=== PATIENT | female | born 1945 | race Caucasian/White ===

== ENCOUNTER 2016-08-26 07:39 | Day surgery (SDC) | payer MEDICARE ==
[2016-08-23 16:55] LABS: BASOPHILS 0.2 %; BASOPHILS ABSOLUTE 0.02 10/3/uL (0.0-0.16); EOSINOPHILS 2.6 %; EOSINOPHILS ABSOLUTE 0.24 10/3/uL (0.0-0.53); HEMATOCRIT 36.4 % (36.0-48.0); HEMOGLOBIN 12.1 g/dL (12.0-16.0); IMMATURE GRANULOCYTES ABSOLUTE 0.09 10/3/uL (0.0-0.11); LYMPHOCYTES 36.5 %; LYMPHOCYTES ABSOLUTE 3.34 10/3/uL (0.67-4.30); MEAN CORPUS HGB CONC 33.2 g/dL (32.0-36.0); MEAN CORPUSCULAR HEMOGLOB 30.1 pg (26.0-34.0); MEAN CORPUSCULAR VOLUME 90.5 fL (80-100); MEAN PLATELET VOLUME 8.7 fL (9.2-13.0); MONOCYTES ABSOLUTE 0.73 10/3/uL (0.21-1.20); NEUTROPHILS 51.7 %; NEUTROPHILS ABSOLUTE 4.72 10/3/uL (2.02-8.40); RED CELL COUNT 4.02 10/6/uL (4.0-5.6)
[2016-08-23 17:00] LABS: MANUAL DIFF NO %; PLATELET COUNT 438 10/3/uL (150-400); WHITE BLOOD CELLS 9.1 10/3/uL (4.5-10.5)
[2016-08-23 17:11] LABS: BUN (BLOOD UREA NITROGEN) 17 MG/DL (6-23); CHLORIDE, SERUM 108 MMOL/L (96-112); CO2 (CARBON DIOXIDE) 23 MMOL/L (24-34); CREATININE 0.75 MG/DL (0.55-1.02); GFR AFRICAN AMERICAN 94 ML/MIN (>=60); GFR NON AFRICAN AMERICAN 81 ML/MIN (>=60); SODIUM, SERUM 141 MMOL/L (135-148)
[2016-08-23 17:12] LABS: CALCIUM, SERUM 8.5 MG/DL (8.5-10.4); GLUCOSE, SERUM 86 MG/DL (60-99); POTASSIUM, SERUM 4.4 MMOL/L (3.5-5.3)
[2016-08-23 17:18] LABS: ASCORBIC ACID (UR NOT ORDER) NEG (NEG); BILIRUBIN, URINE NEGATIVE (NEG); KETONE, URINE NEGATIVE (NEG); LEUKOCYTE ESTERASE(NOT OR TRACE (NEG); WBC (NOT ORDERED) (RFLEX) 4 (0-5)
--- NOTE | ~2016-08-26 | OP ---
Record Of Operation [facility] [address] [place]. [address] NAME: ALISON LEE : 47 STATUS : [facility]#: [id number] AGE: 71 ADM/REG DATE : 08/26/16 MR#: [id number] REPORT SERV DATE: 08/26/16 DICTATED BY: LOCO BUSTILLOS DATE: 08/26/16 REPORT STATUS : Draft TRANSCRIBED BY: GODFREY DATE: 08/26/16 DATE OF PROCEDURE: 08/26/2016 PREOPERATIVE DIAGNOSIS: 4 mm left renal calculus with previous obstructing pyelonephritis. POSTOPERATIVE DIAGNOSIS: 4 mm left renal calculus with previous obstructing pyelonephritis. PROCEDURE: Extracorporeal shock wave lithotripsy of 4 mm left renal calculus. SURGEON: Loco Bustillos M.D. ANESTHESIA: General. BLOOD LOSS: None. DRAINS: None. INDICATION: A 71-year-old female who presented with obstructing stone and pyelonephritis two weeks ago. She underwent cystoscopy and stenting. The stent pushed the stone back up into the kidney. She has been on antibiotic therapy. She is here for treatment of the stone. TECHNIQUE: The patient was identified, brought to the lithotripsy suite. She was administered general anesthetic agent by the Anesthesia Service and intubated. She was laid on the new [place] lithotripsy table. The stone was identified with fluoroscopy, and the beam was focused on the stone using biplanar fluoroscopy. We then administered shockwave therapy starting at energy level of 1.0 and advancing energy level of 7.0. Constant shock rate of 90 shocks per minute was maintained. 3000 shocks were delivered. Intermittent fluoroscopy was used to maintain focus on the stone. It appeared to fragment well. The patient tolerated the procedure well, was awakened, taken to the recovery room is stable and satisfactory condition. PRASANTH/GODFREY Loco Bustillos M.D. / [id number] CC: Ever Skinner D.O.
[~2016-08-26 07:39] MED LIST: ASAB PO; CALTRA600D PO; CIP5 PO; D 5000 PO; DSS PO; ESTRACE0.5 MG PO; EXCEDRIN EXTRA1 EACH PO; LIBRAX PO; NEUR300 PO; NORCO1 TA1 PO; PEP20 PO; REFRES1 OPH; XIIDRA1 EACH OPH
== END 2016-08-26 13:26 | disposition home or self-care (01) ==
LOC: SDC 07:39
PROVIDERS: Urology
PROC: 0TF4XZZ Fragmentation in Left Kidney Pelvis, External Approach (ICD-10-PCS; principal; 2016-08-26 10:00)
DX: N20.0 Calculus of kidney (principal); Z90.710 Acquired absence of both cervix and uterus; Z87.442 Personal history of urinary calculi; Z98.41 Cataract extraction status, right eye; Z98.42 Cataract extraction status, left eye; Z98.890 Other specified postprocedural states
CPT/HCPCS: 50590; 74000; 80048; 81001; 85025; 93005; J0330; J2370; J2550; J3010